=== PATIENT | female | born 1975 | race Caucasian/White ===

== ENCOUNTER 2018-03-26 06:10 | Day surgery (SDC) | payer BC ==
[2018-03-25 12:05] VITALS: BMI 38.4
[~2018-03-26 06:10] MED LIST: HEPARIN SODIUM,PORCINE 5,000 UNIT/ML 1 ML VIAL SQ ONE; Pre Op ABX Message 1 EACH MISC MISCELLANE ONE
[2018-03-26] MEDS ORDERED: ONDANSETRON 4 MG/2 ML VIAL IVP ONE (06:32)
[2018-03-26] MEDS ORDERED: SCOPOLAMINE 1.5MG/72HR PATCH TRANSDERM ONE (06:32)
[2018-03-26] MEDS ORDERED: HYDROmorphone 0.5 MG/0.5 ML SYRINGE IVP PRN (06:32)
[2018-03-26] MEDS ORDERED: LIDOCAINE 1% 20 ML VIAL (10MG/ML) FOR IV START INTRADERMA PRN (06:32)
[2018-03-26] MEDS ORDERED: DEXAMETHASONE SOD PHOSPHATE 10 MG/ML 1 ML VIAL IV ONE (06:32)
[2018-03-26] MEDS ORDERED: LACTATED RINGERS 1,000 ML IV SCH (06:45)
[2018-03-26 06:59] VITALS: RESP 16; TEMP 98.3
--- NOTE | 2018-03-26 07:46 | P.GSHP ---
History of Present Illness H&P Date: 03/26/18 Chief Complaint: Left axillary hidradenitis This a 43-year-old female who's had chronic issues with left axillary hidradenitis. Patient presents today for excision of left axillary hidradenitis. Patient with a risk of wound infection Past Medical History Past Medical History: Skin Disorder Additional Past Medical History / Comment(s): used to take BP medication, hasn' t needed in several years, gets swelling in extremities History of Any Multi-Drug Resistant Organisms: None Reported Past Surgical History: Adenoidectomy, Back Surgery, Orthopedic Surgery, Tonsillectomy Additional Past Surgical History / Comment(s): ORIF both ankles, myringotomy & tubes in ears Past Anesthesia/Blood Transfusion Reactions: Motion Sickness, Postoperative Nausea & Vomiting (PONV) Additional Past Anesthesia/Blood Transfusion Reaction / Comment(s): severe PONV Smoking Status: Former smoker - Past Family History Mother Family Medical History: No Reported History Medications and Allergies Home Medications Medication Instructions Recorded Confirmed Type Hydrochlorothiazide [Hydrodiuril] 25 mg PO DAILY 03/25/18 03/26/18 History Diazepam [Valium] 5 mg PO BID PRN 03/26/18 03/26/18 History HYDROcodone/APAP 7.5-325MG [[place] 1 tab PO Q8HR PRN 03/26/18 03/26/18 History 7.5-325] tiZANidine [Zanaflex] 4 mg PO Q8HR PRN 03/26/18 03/26/18 History Allergies Allergy/AdvReac Type Severity Reaction Status Date / Time codeine Allergy pancreatic Verified 03/26/18 06:55 spasms Surgical - Exam Vital Signs Temp Pulse Resp BP Pulse Ox 98.3 F 81 16 183/86 91 L 03/26/18 06:58 03/26/18 06:58 03/26/18 06:58 03/26/18 06:58 03/26/18 06:58 - General well developed, well nourished, no distress - Eyes PERRL - ENT normal pinna - Neck no masses - Respiratory normal expansion - Cardiovascular Rhythm: regular - Abdomen Abdomen: soft, non tender - Integumentary Left axillary hidradenitis Assessment and Plan Assessment: Left axillary hidradenitis. We'll perform excision.
[2018-03-26] MEDS ORDERED: BUPIVACAIN-EPI 0.25%-1:200,000 30 ML VIAL SQ ONE ×3 (07:48→08:19)
[2018-03-26] MEDS ORDERED: MIDAZOLAM 2 MG/2 ML VIAL ONE (08:02)
[2018-03-26] MEDS ORDERED: PROPOFOL 10 MG/ML 20 ML VIAL IV ONE (08:02)
[2018-03-26] MEDS ORDERED: fentaNYL (PF) 50 MCG/ML 2 ML AMP ONE (08:02)
[2018-03-26] MEDS ORDERED: LIDOCAINE 1% INJ 10MG/ML (20 ML MDV) ONE (08:02)
[2018-03-26] MEDS ORDERED: SODIUM CHLORIDE 0.9% 50 ML with ceFAZolin 2,000 MG IV ONE ×2 (08:41)
--- NOTE | 2018-03-26 09:10 | P.OP ---
Date of Procedure: 03/26/18 Preoperative Diagnosis: Left axillary hidradenitis Postoperative Diagnosis: Left axillary hidradenitis Procedure(s) Performed: Excision of left axillary hidradenitis Anesthesia: MAC Surgeon: Rakesh Bhandari Estimated Blood Loss (ml): 5 Pathology: other (Left axillary hidradenitis) Condition: stable Disposition: PACU Description of Procedure: The patient's placed on the operative table in the supine position. She received IV sedation. The left is a low was prepped and draped usual sterile fashion. The area was anesthetized 1% local Xylocaine. Using a 15 blade and elliptical skin incision was made and then the subcutaneous tissue divided using left cautery. The skin was closed interrupted 3-0 Monocryl and 2-0 Vicryl suture. Dermabond was applied. Patient top she will was sent to recovery room stable condition.
[2018-03-26 09:26] VITALS: BP 162/83; PULSE 77
== END 2018-03-26 09:38 | disposition home or self-care (01) ==
LOC: OR 06:10
PROVIDERS: ATTEND Surgery
DX: L73.2 Hidradenitis suppurativa (principal); L72.0 Epidermal cyst; Z87.891 Personal history of nicotine dependence; Z79.891 Long term (current) use of opiate analgesic; Z79.899 Other long term (current) drug therapy; Z88.5 Allergy status to narcotic agent
CPT/HCPCS: 81025; 88304; 11450; J2250; J1644; J1100; J2405; J2001; J3010; J0690; J2704